=== PATIENT | male | born 1980 | race American Indian/Alaskan Native ===

== ENCOUNTER 2019-06-18 11:20 | Emergency (ER) | payer SELFPAY ==
[2019-06-18 11:29] VITALS: BP 163/109
--- NOTE | 2019-06-18 11:45 | Emergency Department Report ---
Chief Complaint: BP Check / Ring removal req Stated Complaint: BLOOD PRESSURE - HPI History of Present Illness: elevateed BP on DOT physical. no signs or symptoms or end organ damage - ROS Review of Systems: all systems reviewed and neg - Exam Vital Signs: Vital Signs 06/18/19 11:28 Temperature 97.6 F Pulse Rate 74 Respiratory 16 Rate Blood Pressure 163/109 O2 Sat by Pulse 100 Oximetry Physical Exam: heart tones nl, lungs clear. moving all extremities. nomal neuro exam MSE screening note: Focused history and physical exam performed. Due to findings the following was ordered: ED Medical Decision Making - Medical Decision Making no emerg med condition present. To follow up with dr Chahal today for BP meds ED Disposition for MSE Clinical Impression: Hypertensive urgency Disposition: Z- MED SCREENING EXAM-LEFT Is pt being admited?: No Does the pt Need Aspirin: No Condition: Stable Instructions: Hypertension (ED) Referrals: LUCY CHAHAL MD [Staff Physician] - 3-5 Days
== END 2019-06-18 11:45 | disposition left against medical advice (07) ==
LOC: ED 11:20
DX: I10 Essential (primary) hypertension (principal); Z53.21 Procedure and treatment not carried out due to patient leaving prior to being seen by health care provider
CPT/HCPCS: 99281

== ENCOUNTER 2020-02-06 10:42 | Emergency (ER) | payer SELFPAY ==
[2020-02-06 10:54] VITALS: BP 164/97
--- NOTE | 2020-02-06 11:12 | Emergency Department Report ---
Chief Complaint: Urogenital-Male Stated Complaint: UTI Time Seen by Provider: 02/06/20 11:08 - HPI History of Present Illness: Patient is a 39-year-old male presents emergency room with complaints of dysuria that began a couple days ago. He denies any penile discharge, pain or swelling in the testicles, fever, vomiting, urinary retention, hematuria, abdominal pain. He states that he has had a new sexual partner. He denies any STD history. No past medical history. No allergies to medications. Vitals are stable On exam: Non toxic appearing, no acute distress atraumatic, normocephalic normal appearance of the eyes, EOMI, no periorbital edema or ecchymosis moist mucus membranes no respiratory distress, no accessory muscle use Almond Roaster: cade Waldron, no testicular ttp, no scrotal edema, no epididymal tenderness or swelling, normal testicular lie, no lesions or blisters, normal cremasteric reflex A&O x4, no focal neuro deficit skin is warm, dry, intact Patient is presenting to the emergency room with dysuria and he has had a new sexual partner He denies any penile discharge, pain or swelling in the testicles, fever, vomiting, urinary retention, hematuria, abdominal pain. No abnormality on exam as documented in chart with cade Teresa as long term Patient will be referred to a clinic and the health department in order to receive a full STD panel and treatment as appropriate Discuss strict return precautions with patient Patient referred to the appropriate resources Medical screening examination performed and there is no threat to life or limb at this time - Exam Vital Signs: Vital Signs 02/06/20 10:50 Temperature 98.3 F Pulse Rate 88 Respiratory 20 Rate Blood Pressure 164/97 O2 Sat by Pulse 100 Oximetry MSE screening note: Focused history and physical exam performed. Due to findings the following was ordered: ED Disposition for MSE Clinical Impression: Concern about STD in male without diagnosis Disposition: Z-07 MED SCREENING EXAM-LEFT Is pt being admited?: No Does the pt Need Aspirin: No Condition: Stable Instructions: Sexually Transmitted Diseases (ED), Safe Sex (ED) Additional Instructions: Please follow-up with the health department or clinic for full STD panel. Please have any partner tested and treated as well. Avoid sexual intercourse. Return to emergency room for any new or worsening symptoms. [employer] Address: [address] [place] [id number] Closed Opens 9AM Mon closes at 6PM [facility] Address: [address] [place] [address] Hours: Open 24 hours Referrals: [facility] Depart [Outside] - 2-3 Days Time of Disposition: 11:13 Print Language: PORTUGUESE
== END 2020-02-06 11:21 | disposition left against medical advice (07) ==
LOC: ED 10:42
DX: N39.0 Urinary tract infection, site not specified (principal); Z53.21 Procedure and treatment not carried out due to patient leaving prior to being seen by health care provider

== ENCOUNTER 2020-02-12 14:08 | Emergency (ER) | payer SELFPAY ==
[2020-02-12 14:33] VITALS: BP 153/82
--- NOTE | 2020-02-12 15:00 | Emergency Department Report ---
Chief Complaint: Urogenital-Male Stated Complaint: UTI - HPI History of Present Illness: Patient is a 39-year-old male presents emergency room with complaints of dysuria that began a 1 week ago. He denies any penile discharge, pain or swelling in the testicles, fever, vomiting, urinary retention, hematuria, abdominal pain. He states that he has had a new sexual partner. He denies any STD history. No past medical history. No allergies to medications. Patient keeps telling me that he has the symptoms that he is read on the Internet. Patient was referred to health department in urgent care but never followed up. - Exam Vital Signs: Vital Signs 02/12/20 14:32 Temperature 98.2 F Pulse Rate 64 Respiratory 16 Rate Blood Pressure 153/82 [Right] O2 Sat by Pulse 97 Oximetry Physical Exam: Patient is alert and oriented x3 no acute distress nontoxic in appearance. Patient is amatory without difficulties. MSE screening note: Focused history and physical exam performed. Due to findings the following was ordered: Patient is a 39-year-old male presents emergency room with complaints of dysuria that began a 1 week ago. He denies any penile discharge, pain or swelling in the testicles, fever, vomiting, urinary retention, hematuria, abdominal pain. He states that he has had a new sexual partner. He denies any STD history. No past medical history. No allergies to medications. Patient keeps telling me that he has the symptoms that he is read on the Internet. Patient was referred to health department in urgent care but never followed up. Discussed with ella oneill he needs to follow-up in our urgent care urology or health department. ED Medical Decision Making - Medical Decision Making Patient is a 39-year-old male presents emergency room with complaints of dysuria that began a 1 week ago. He denies any penile discharge, pain or swelling in the testicles, fever, vomiting, urinary retention, hematuria, abdominal pain. He states that he has had a new sexual partner. He denies any STD history. No past medical history. No allergies to medications. Patient keeps telling me that he has the symptoms that he is read on the Internet. Patient was referred to health department in urgent care but never followed up. Patient has no urgency of loss of limb or . Patient is afebrile all vitals are stable. ED Disposition for MSE Clinical Impression: Concern about STD in male without diagnosis Disposition: Z-07 MED SCREENING EXAM-LEFT Is pt being admited?: No Does the pt Need Aspirin: No Condition: Stable Additional Instructions: Discussed with patient he needs to follow-up at the health department or urgent care or urologist. Referrals: [facility] [Provider Group] - 3-5 Days
== END 2020-02-12 16:33 | disposition left against medical advice (07) ==
LOC: ED 14:08
DX: N39.0 Urinary tract infection, site not specified (principal); Z53.21 Procedure and treatment not carried out due to patient leaving prior to being seen by health care provider

== ENCOUNTER 2020-04-20 14:40 | Emergency (ER) | payer SELFPAY ==
[2020-04-20 18:12] LABS: Basophils # (Auto) 0.1 K/mm3 (0.0-0.1); Basophils % (Auto) 1.3 % (0.0-1.8); Eosinophils % (Auto) 0.1 % (0.0-4.3); Hematocrit 46.1 % (35.5-45.6); Hemoglobin 15.4 gm/dl (11.8-15.2); Lymphocytes # (Auto) 1.4 K/mm3 (1.2-5.4); Lymphocytes % (Auto) 19.2 % (13.4-35.0); Mean Corpuscular HGB Conc 33 % (32-34); Mean Corpuscular Volume 89 fl (84-94); Monocytes # (Auto) 0.4 K/mm3 (0.0-0.8); Monocytes % (Auto) 5.6 % (0.0-7.3); Platelet Count 255 K/mm3 (140-440); Red Cell Distribution Width 13.3 % (13.2-15.2)
[2020-04-20 18:34] LABS: Alanine Aminotransferase 29 units/L (7-56); Albumin 4.7 g/dL (3.9-5); BUN/Creatinine Ratio 14; Blood Urea Nitrogen 11 mg/dL (9-20); Hemolysis Index 9
--- NOTE | 2020-04-20 19:22 | Emergency Department Report ---
ED Psych HPI - General Chief Complaint: Altered Mental Status Stated Complaint: MENTAL HEALTH Time Seen by Provider: 04/20/20 18:59 Source: patient, family Mode of arrival: Ambulatory Limitations: No Limitations - History of Present Illness Initial Comments: 39-year-old male with no significant past medical history presents to the hospital complaining of needing help with his mental health. Patient speaks in a low volume and makes poor eye contact. He states he is trying to get to his mother in [place]. He has lived in [place] since 2008. He endorses hearing voices for several years but is vague in his description. He also complains of feeling paranoid about getting back to [place] to see his mother. He denies history of psychiatric diagnosis or treatment. Denies substance abuse. He denies suicidal homicidal ideation. He denies physical complaints - Related Data Previous Rx's Medication Instructions Recorded Last Taken Type labetaloL [Labetalol 100mg TAB] 100 mg PO BID #60 tablet 04/21/20 Unknown Rx Allergies Allergy/AdvReac Type Severity Reaction Status Date / Time No Known Allergies Allergy Unverified 03/06/18 09:14 ED Review of Systems ROS: Stated complaint: MENTAL HEALTH Other details as noted in HPI Comment: All other systems reviewed and negative ED Past Medical Hx - Social History Smoking Status: Current Some Day Smoker Substance Use Type: Alcohol - Medications Home Medications: Home Medications Medication Instructions Recorded Confirmed Last Taken Type labetaloL [Labetalol 100mg TAB] 100 mg PO BID #60 tablet 04/21/20 Unknown Rx ED Physical Exam - General Limitations: No Limitations - Other Other exam information: General: No acute distress Head: Atraumatic Eyes: normal appearance ENT: Moist mucous membranes Neck: Normal appearance, no midline tenderness Chest: Clear to auscultation bilaterally CV: Regular rate and rhythm Abdomen: Soft, normal bowel sounds, nontender, nondistended, no rebound or gu arding Back: Normal inspection Extremity: Normal inspection, full range of motion Neuro: Alert O x 3, no facial asymmetry, speech clear, no gross motor sensory deficit Psych: Speaks in low volume, poor eye contact, delayed in response to questions Skin: No rash ED Course Vital Signs 04/20/20 04/20/20 04/20/20 18:11 19:30 19:40 Temperature 97.9 F 98.0 F Pulse Rate 75 71 71 Respiratory 18 16 Rate Blood Pressure 173/111 Blood Pressure 186/108 173/111 [Left] O2 Sat by Pulse 98 100 Oximetry 04/20/20 22:05 Temperature 97.7 F Pulse Rate 74 Respiratory 16 Rate Blood Pressure Blood Pressure 159/102 [Left] O2 Sat by Pulse 100 Oximetry ED Medical Decision Making - Lab Data Result diagrams: 04/20/20 17:49 04/20/20 17:49 Lab Results 04/20/20 04/20/20 04/20/20 Range/Units 17:49 17:49 17:49 WBC 7.3 (4.5-11.0) K/mm3 RBC 5.20 H (3.65-5.03) M/mm3 Hgb 15.4 H (11.8-15.2) gm/dl Hct 46.1 H (35.5-45.6) % MCV 89 (84-94) fl MCH 30 (28-32) pg MCHC 33 (32-34) % RDW 13.3 (13.2-15.2) % Plt Count 255 (140-440) K/mm3 Lymph % (Auto) 19.2 (13.4-35.0) % [place] % (Auto) 5.6 (0.0-7.3) % Eos % (Auto) 0.1 (0.0-4.3) % Baso % (Auto) 1.3 (0.0-1.8) % Lymph # (Auto) 1.4 (1.2-5.4) K/mm3 [place] # (Auto) 0.4 (0.0-0.8) K/mm3 Eos # (Auto) 0.0 (0.0-0.4) K/mm3 Baso # (Auto) 0.1 (0.0-0.1) K/mm3 Seg Neutrophils % 73.8 H (40.0-70.0) % Seg Neutrophils # 5.4 (1.8-7.7) K/mm3 Sodium 138 (137-145) mmol/L Potassium 3.7 (3.6-5.0) mmol/L Chloride 99.5 (98-107) mmol/L Carbon Dioxide 26 (22-30) mmol/L Anion Gap 16 mmol/L BUN 11 (9-20) mg/dL Creatinine 0.8 (0.8-1.3) mg/dL Estimated GFR > 60 ml/min BUN/Creatinine Ratio 14 % Glucose 104 H (75-100) mg/dL Calcium 10.0 (8.4-10.2) mg/dL Total Bilirubin 1.10 (0.1-1.2) mg/dL AST 26 (5-40) units/L ALT 29 (7-56) units/L Alkaline Phosphatase 82 (35-129) units/L Total Protein 7.8 (6.3-8.2) g/dL Albumin 4.7 (3.9-5) g/dL Albumin/Globulin Ratio 1.5 % Urine Color (Yellow) Urine Turbidity (Clear) Urine pH (5.0-7.0) Ur Specific [place] (1.003-1.030) Urine Protein (Negative) mg/dL Urine Glucose (UA) (Negative) mg/dL Urine Ketones (Negative) mg/dL Urine Blood (Negative) Urine Nitrite (Negative) Urine Bilirubin (Negative) Urine Urobilinogen (<2.0) mg/dL Ur Leukocyte Esterase (Negative) Urine WBC (Auto) (0.0-6.0) /HPF Urine RBC (Auto) (0.0-6.0) /HPF U Epithel Cells (Auto) (0-13.0) /HPF Urine Mucus /HPF Salicylates < 0.3 L (2.8-20.0) mg/dL Urine Opiates Screen Urine Methadone Screen Acetaminophen (10.0-30.0) ug/mL Ur Barbiturates Screen Ur Phencyclidine Scrn Ur Amphetamines Screen U Benzodiazepines Scrn Urine Cocaine Screen U Marijuana (THC) Screen Drugs of Abuse Note Plasma/Serum Alcohol (0-0.07) % 04/20/20 04/20/20 04/20/20 Range/Units 17:49 17:49 19:25 WBC (4.5-11.0) K/mm3 RBC (3.65-5.03) M/mm3 Hgb (11.8-15.2) gm/dl Hct (35.5-45.6) % MCV (84-94) fl MCH (28-32) pg MCHC (32-34) % RDW (13.2-15.2) % Plt Count (140-440) K/mm3 Lymph % (Auto) (13.4-35.0) % [place] % (Auto) (0.0-7.3) % Eos % (Auto) (0.0-4.3) % Baso % (Auto) (0.0-1.8) % Lymph # (Auto) (1.2-5.4) K/mm3 [place] # (Auto) (0.0-0.8) K/mm3 Eos # (Auto) (0.0-0.4) K/mm3 Baso # (Auto) (0.0-0.1) K/mm3 Seg Neutrophils % (40.0-70.0) % Seg Neutrophils # (1.8-7.7) K/mm3 Sodium (137-145) mmol/L Potassium (3.6-5.0) mmol/L Chloride (98-107) mmol/L Carbon Dioxide (22-30) mmol/L Anion Gap mmol/L BUN (9-20) mg/dL Creatinine (0.8-1.3) mg/dL Estimated GFR ml/min BUN/Creatinine Ratio % Glucose (75-100) mg/dL Calcium (8.4-10.2) mg/dL Total Bilirubin (0.1-1.2) mg/dL AST (5-40) units/L ALT (7-56) units/L Alkaline Phosphatase (35-129) units/L Total Protein (6.3-8.2) g/dL Albumin (3.9-5) g/dL Albumin/Globulin Ratio % Urine Color Yellow (Yellow) Urine Turbidity Clear (Clear) Urine pH 6.0 (5.0-7.0) Ur Specific [place] 1.025 (1.003-1.030) Urine Protein <15 mg/dl (Negative) mg/dL Urine Glucose (UA) Neg (Negative) mg/dL Urine Ketones Neg (Negative) mg/dL Urine Blood Neg (Negative) Urine Nitrite Neg (Negative) Urine Bilirubin Neg (Negative) Urine Urobilinogen < 2.0 (<2.0) mg/dL Ur Leukocyte Esterase Neg (Negative) Urine WBC (Auto) 2.0 (0.0-6.0) /HPF Urine RBC (Auto) 4.0 (0.0-6.0) /HPF U Epithel Cells (Auto) < 1.0 (0-13.0) /HPF Urine Mucus 1+ /HPF Salicylates (2.8-20.0) mg/dL Urine Opiates Screen Urine Methadone Screen Acetaminophen 5.0 L (10.0-30.0) ug/mL Ur Barbiturates Screen Ur Phencyclidine Scrn Ur Amphetamines Screen U Benzodiazepines Scrn Urine Cocaine Screen U Marijuana (THC) Screen Drugs of Abuse Note Plasma/Serum Alcohol < 0.01 (0-0.07) % 04/20/20 Range/Units 19:25 WBC (4.5-11.0) K/mm3 RBC (3.65-5.03) M/mm3 Hgb (11.8-15.2) gm/dl Hct (35.5-45.6) % MCV (84-94) fl MCH (28-32) pg MCHC (32-34) % RDW (13.2-15.2) % Plt Count (140-440) K/mm3 Lymph % (Auto) (13.4-35.0) % [place] % (Auto) (0.0-7.3) % Eos % (Auto) (0.0-4.3) % Baso % (Auto) (0.0-1.8) % Lymph # (Auto) (1.2-5.4) K/mm3 [place] # (Auto) (0.0-0.8) K/mm3 Eos # (Auto) (0.0-0.4) K/mm3 Baso # (Auto) (0.0-0.1) K/mm3 Seg Neutrophils % (40.0-70.0) % Seg Neutrophils # (1.8-7.7) K/mm3 Sodium (137-145) mmol/L Potassium (3.6-5.0) mmol/L Chloride (98-107) mmol/L Carbon Dioxide (22-30) mmol/L Anion Gap mmol/L BUN (9-20) mg/dL Creatinine (0.8-1.3) mg/dL Estimated GFR ml/min BUN/Creatinine Ratio % Glucose (75-100) mg/dL Calcium (8.4-10.2) mg/dL Total Bilirubin (0.1-1.2) mg/dL AST (5-40) units/L ALT (7-56) units/L Alkaline Phosphatase (35-129) units/L Total Protein (6.3-8.2) g/dL Albumin (3.9-5) g/dL Albumin/Globulin Ratio % Urine Color (Yellow) Urine Turbidity (Clear) Urine pH (5.0-7.0) Ur Specific [place] (1.003-1.030) Urine Protein (Negative) mg/dL Urine Glucose (UA) (Negative) mg/dL Urine Ketones (Negative) mg/dL Urine Blood (Negative) Urine Nitrite (Negative) Urine Bilirubin (Negative) Urine Urobilinogen (<2.0) mg/dL Ur Leukocyte Esterase (Negative) Urine WBC (Auto) (0.0-6.0) /HPF Urine RBC (Auto) (0.0-6.0) /HPF U Epithel Cells (Auto) (0-13.0) /HPF Urine Mucus /HPF Salicylates (2.8-20.0) mg/dL Urine Opiates Screen Negative Urine Methadone Screen Negative Acetaminophen (10.0-30.0) ug/mL Ur Barbiturates Screen Negative Ur Phencyclidine Scrn Negative Ur Amphetamines Screen Negative U Benzodiazepines Scrn Negative Urine Cocaine Screen Negative U Marijuana (THC) Screen Negative Drugs of Abuse Note Disclamer Plasma/Serum Alcohol (0-0.07) % - Medical Decision Making 39-year-old male presents to the hospital with psychosis and paranoia requesting mental health help. 1013 has been signed due to psychosis. Patient has elevated blood pressure with likely new diagnosis of hypertension. Labetalol 100 mg twice daily initiated in the ED. Patient does not have any physical complaints and is medically cleared for psychiatric admission. If patient is ultimately discharged he will need BP medication for home.. Critical Care Time: No Critical care attestation.: If time is entered above; I have spent that time in minutes in the direct care of this critically ill patient, excluding procedure time. ED Disposition Clinical Impression: Psychosis, Paranoia, Hypertension, Medical clearance for psychiatric admission Disposition: [id number] PSY HOSP/PSY UNIT Is pt being admited?: No Does the pt Need Aspirin: No Condition: Stable Instructions: Hypertension (ED) Prescriptions: labetaloL [Labetalol 100mg TAB] 100 mg PO BID #60 tablet
[2020-04-20 20:07] LABS: Bilirubin,Urine NEG (Negative); Blood,Urine NEG (Negative); Color,Urine Yellow (Yellow); Mucus,Urine 1+ /HPF; Protein,Urine <15 mg/dL mg/dL (Negative); Urobilinogen,Urine < 2.0 mg/dL (<2.0)
[2020-04-20 20:11] LABS: Amphetamine Screen,Urine Negative; Benzodiazepines Screen,Urine Negative; Cannabinoid Screen,Urine Negative; Cocaine Screen,Urine Negative; Methadone Screen,Urine Negative; Opiate Screen,Urine Negative
--- NOTE | 2020-04-21 09:55 | Consultation ---
History of Present Illness - Reason for Consult Consult date: 04/21/20 Reason for consult: MHE Requesting physician: SHALONDA SILVA - History of Present Psychiatric Illness Per ED Provider:39-year-old male with no significant past medical history presents to the hospital complaining of needing help with his mental health. Patient speaks in a low volume and makes poor eye contact. He states he is trying to get to his mother in [place]. He has lived in [place] since 2008. He endorses hearing voices for several years but is vague in his description. He also complains of feeling paranoid about getting back to [place] to see his mother. He denies history of psychiatric diagnosis or treatment. Denies substance abuse. He denies suicidal homicidal ideation. He denies physical complaints PSYCH HPI Patient is a 39-year-old, single, currently unemployed -[place] male with unspecified past psychiatric history and past medical history of hypertension who presented to the ED requesting that evaluation. Patient appears withdrawn, paranoid soft-spoken in low volume and sometimes appears to be mumbling. When asked why is in the ED patient says he is not good stating that he has made some mistakes and repetitively and is here for a few things which patient did not disclose and remain muted. PAST PSYCHIATRIC HISTORY Diagnoses: None reported Suicide attempts or Self-harm behavior: None reported Prior psychiatric hospitalizations: None reported Substance Abuse history: None reported Previous psychiatric medications tried: None reported Outpatient treatment: None reported PAST MEDICAL HISTORY: HTN Family Psychiatric History: None reported or documented SOCIAL HISTORY Marital Status: single Living Arrangements: homeless Employment Status: unemployed Access to guns/weapons: None reported Education: 12th grade History of Abuse: None reported Legal History: None reported REVIEW OF SYSTEMS Constitutional: Negative for weight loss ENT: Negative for stridor Respiratory: Negative for cough or hemoptysis All other systems reviewed and are negative MENTAL STATUS EXAMINATION General Appearance and Behavior: Age appropriate, fair hygiene, wearing appropriate clothes, poor eye contact, cooperative irritable with questioning. Cooperation: Participating, Hostile and Guarded Psychomotor Behavior: unremarkable and within normal limits Mood: muted Affect and affective range: flat, preservative Thought Process: Illogical, Blocked, Thought Content: paranoid Speech: low volume, slow rate and rhythm, Intellectual Functioning: Average Suicidal Ideation: Denies SI Homicidal Ideation: Denies HI Impulse Control: Impaired Insight and Judgment: Limited insight and judgment Memory: Short term memory intact Attention: Divided attention impaired Orientation: Alert, oriented, Diagnoses: Assessment and Plan - Psychiatric problem (1) Schizophrenia, paranoid type Current Visit: Yes Status: Acute Treatment Plan MEDICATIONS: risperdol Risks, benefits and alternatives of medications discussed with the patient, questions answered and consent obtained from patient. PSYCHOTHERAPY: Supportive psychotherapy provided MEDICAL: Per primary team DELIRIUM PRECAUTIONS: Please re-orient patient frequently, keep lights on during the day, and minimize benzodiazepines and opiates as these medications could worsen patient's confusion. CONSTRUCTION QUALITY CONTROL MANAGER: DISPOSITION: Do Recommend acute inpatient psychiatric hospitalization at this time LEGAL STATUS: 1013 FOLLOW-UP: Will follow Thank you for the consult. Please contact with any questions and/or concerns. Medications and Allergies Allergies Allergy/AdvReac Type Severity Reaction Status Date / Time No Known Allergies Allergy Unverified 03/06/18 09:14 Home Medications Medication Instructions Recorded Confirmed Last Taken Type labetaloL [Labetalol 100mg TAB] 100 mg PO BID #60 tablet 04/21/20 Unknown Rx Active Meds: Active Medications Labetalol HCl (Labetalol 100 Mg Tab) 100 mg PO BID KEIRY Last Admin: 04/20/20 23:27 Dose: Not Given Documented by: Mental Status Exam - Vital signs Last Vital Signs Temp 97.4 F L 04/21/20 08:00 Pulse 68 04/21/20 08:00 Resp 18 04/21/20 08:00 BP 167/101 04/21/20 08:00 Pulse Ox 100 04/21/20 08:00 Results Result Diagrams: 04/20/20 17:49 04/20/20 17:49 Abnormal lab results 04/20/20 04/20/20 04/20/20 Range/Units 17:49 17:49 17:49 RBC 5.20 H (3.65-5.03) M/mm3 Hgb 15.4 H (11.8-15.2) gm/dl Hct 46.1 H (35.5-45.6) % Seg Neutrophils % 73.8 H (40.0-70.0) % Glucose 104 H (75-100) mg/dL Salicylates < 0.3 L (2.8-20.0) mg/dL Acetaminophen (10.0-30.0) ug/mL 12/10/20 Range/Units 17:49 RBC (3.65-5.03) M/mm3 Hgb (11.8-15.2) gm/dl Hct (35.5-45.6) % Seg Neutrophils % (40.0-70.0) % Glucose (75-100) mg/dL Salicylates (2.8-20.0) mg/dL Acetaminophen 5.0 L (10.0-30.0) ug/mL All other labs normal. Assessment and Plan - Psychiatric problem (1) Schizophrenia, paranoid type Current Visit: Yes Status: Acute
[2020-04-21] MEDS: risperiDONE 0.25 MG TAB PO SCH (12:55)
[2020-04-22] MEDS: risperiDONE 0.25 MG TAB PO SCH ×2 (00:26→11:00)
[2020-04-22 08:04] VITALS: BP 139/97
== END 2020-04-22 13:30 ==
LOC: ED 14:40
DX: F23 Brief psychotic disorder (principal); F22 Delusional disorders; I10 Essential (primary) hypertension
CPT/HCPCS: 36415; 80053; 80307; 80320; 81001; 85025; G0480